=== PATIENT | female | born 1970 | race African-American/Black ===

== ENCOUNTER 2017-01-15 06:23 | Inpatient (IN) ==
[2017-01-10 16:03] LABS: MANUAL DIFF NEEDED? NO
[2017-01-10 16:05] LABS: URINE SOURCE VOIDED
[2017-01-10 16:27] LABS: BASO% 0.2 % (0.0-0.8); EOS# 0.15 X1000 (0.0-0.7); EOS% 1.7 % (0.0-10.0); HEMATOCRIT 36.8 % (37.0-47.0); HEMOGLOBIN 12.5 g/dL (12.0-16.0); IMM GRAN# 0.02 X1000 (0.0-0.04); IMM GRAN% 0.2 % (0.0-0.5); LYMPH# 3.43 X1000 (1.2-3.4); LYMPH% 37.9 % (20.5-51.1); MCH 28.3 PG (27-31); MCV 83.3 FL (81-99); MONO% 8.8 % (1.7-9.3); MPV 10.4 FL (7.4-10.4); NEUT% 51.2 % (42.2-75.2); PLT 370 X1000 (130-400); RBC 4.42 XMIL (4.2-5.4)
[2017-01-10 17:51] LABS: URINE MICRO REVIEW NEEDED? NO
[2017-01-10 17:56] LABS: BILIRUBIN URINE NEGATIVE (NEGATIVE); BLOOD URINE NEGATIVE (NEGATIVE); COLOR YELLOW; GLUCOSE URINE NEGATIVE (NEGATIVE); LEUKOCYTES URINE NEGATIVE (NEGATIVE); NITRITE URINE NEGATIVE (NEGATIVE); PROTEIN URINE TRACE mg/dL (NEGATIVE); SP GRAVITY URINE 1.016; TURBIDITY URINE CLEAR (CLEAR); UR EPITHELIAL CELLS <10 /HPF (<10); URINE BACTERIA NEGATIVE /HPF; URINE RBC <10 /HPF (<10); URINE WBC <10 /HPF (<10); UROBILINOGEN URINE NORMAL (NORMAL)
--- NOTE | 2017-01-11 06:50 | EKG Report ---
Test Performed on : 01/10/2017 3:45:46 PM Test Reason : pat Blood Pressure : / mmHG Vent. Rate : 067 BPM Atrial Rate : 067 BPM P-R Int : 170 ms QRS Dur : 090 ms QT Int : 400 ms P-R-T Axes : 051 -14 002 degrees QTc Int : 422 ms Normal sinus rhythm. Moderate voltage criteria for LVH, may be normal variant Borderline ECG No previous ECGs available Confirmed by Veronika Severino MD ([id number]) on 01/11/2017 1:02:02 PM
--- NOTE | 2017-01-14 18:08 | HISTORY AND PHYSICAL ---
HISTORY OF PRESENT ILLNESS: Stefanie is a 46-year-old, black female, para 3, with a history of a C- section, and also 2 vaginal deliveries, being admitted at this time for a total abdominal hysterectomy. She has a past history of having had an endometrial ablation back in 2014, but continues to have ongoing abnormal bleeding problems and a significant amount of dysmenorrhea. She relates that all of this seems to interfere with her activities of daily living during that time of the month, and that not only in looking after her own children, she has a grandchild that requires a lot of her time, and this markedly compromises her ability to be able to handle that situation. She feels that she does want to move on in the direction of a hysterectomy, and with her exam and the history of a , we discussed proceeding with a total abdominal hysterectomy. She does understand that there are other options, robotics and laparoscopic, and that she was certainly welcome to investigate those if she liked, but she felt more comfortable staying and having us proceed as planned. We did discuss the management of her ovaries, and she would like to leave them intact, assuming that they do appear to be normal. She does understand that in the future, there is no way to predict whether that may become an issue or not. We also discussed the nature of the procedure, the risk involved, the risk of anesthesia issues, including, but not limited to, injury to surrounding structures, infection, hemorrhage, and even . We talked about the usual length of hospitalization, the recuperation time at home, and the restrictions therein. We also discussed the fact that due to her size and previous , that we will not know for sure about the status of her cervix until we are intraoperative, and that if it is extremely risky to try to remove the cervix, that we will leave it intact, doing a supracervical hysterectomy, which hopefully will take care of the majority of any kind of bleeding or cramping or pain. She understands that is sometimes left behind, being the cervix, it if it appears to be more of a risk to remove it. It should be noted in regards to that, her last Pap smear done 12/27/2016 was normal. It should also be noted that she is going to have a bilateral breast reduction, and that will be done by Dr. Mendoza upon the completion of our portion of the procedure. Otherwise, she felt well-informed in regards to the proposed procedure, and had no further questions. PAST MEDICAL HISTORY: Other than the above, is for the most part noncontributory. She has had some iron-deficiency anemia problems, and normally sees Dr. Josep Romeo for her regular medical care, but has also seen Dr. Daniel for the followup regarding her iron deficiency. It should be noted at this point, prior to surgery, that her hematocrit is 36.8. FAMILY HISTORY: Noncontributory. SOCIAL HISTORY: Noncontributory. REVIEW OF SYSTEMS: Other than the above, are noncontributory. ALLERGIES: She relates to no known allergies. PHYSICAL EXAMINATION: GENERAL: A well-developed, moderately obese black female, in no acute distress. VITAL SIGNS: Stable. Noted on the chart. HEENT: Unremarkable. NECK: Without nodes or thyromegaly. HEART: Regular, without murmurs, gallops, or rubs. LUNGS: Clear. BREASTS: Without mass or tenderness. ABDOMEN: Soft, nontender. No masses. PELVIC: Normal external female genitalia. Vagina is clean. Cervix: No lesions. Uterus: Normal size, mid position. No adnexal masses. Rectovaginal exam is normal. Heme negative. EXTREMITIES: Without tenderness or edema. NEUROLOGICAL: Grossly normal. ASSESSMENT: Abnormal uterine bleeding and mostly dysmenorrhea refractory to prior conservative surgery. PLAN: Total abdominal hysterectomy. cc: Ronak Flores MD
[~2017-01-15 06:23] MED LIST: DIPRIVAN 1% ONE; XYLOCAINE-MPF 2% ONE; ZEMURON ONE
[2017-01-15] MEDS ORDERED: ZEMURON ONE (06:24)
[2017-01-15] MEDS ORDERED: KEFZOL 2 GM/D5W 2 GM/50 ML IVPB ONE (06:41)
[2017-01-15] MEDS ORDERED: TRANSDERM-SCOP ONE (06:41)
[2017-01-15] MEDS ORDERED: LR 1,000 ML ONE ×2 (06:41→14:56)
[2017-01-15] MEDS ORDERED: METHYLENE BLUE 0.5% ONE (06:55)
[2017-01-15] MEDS ORDERED: MURI-LUBE MINERAL OIL ONE (06:55)
[2017-01-15] MEDS ORDERED: BACITRACIN ONE (06:55)
[2017-01-15] MEDS ORDERED: MARCAINE 0.25% PF ONE (07:24)
[2017-01-15] MEDS ORDERED: EXPAREL 1.3% ONE (07:24)
[2017-01-15] MEDS ORDERED: SODIUM CHLORIDE 0.9% 10 ML ONE ×2 (07:24→09:56)
[2017-01-15] MEDS ORDERED: FENTANYL ONE (08:03)
[2017-01-15 08:15] LABS: URINE MICRO REVIEW NEEDED? NO; URINE SOURCE CATH
[2017-01-15 08:21] LABS: BILIRUBIN URINE NEGATIVE (NEGATIVE); BLOOD URINE NEGATIVE (NEGATIVE); COLOR STRAW; GLUCOSE URINE NEGATIVE (NEGATIVE); LEUKOCYTES URINE NEGATIVE (NEGATIVE); NITRITE URINE NEGATIVE (NEGATIVE); PH URINE 6.5; PROTEIN URINE NEGATIVE (NEGATIVE); TURBIDITY URINE CLEAR (CLEAR); UR EPITHELIAL CELLS <10 /HPF (<10); URINE BACTERIA NEGATIVE /HPF; URINE RBC <10 /HPF (<10); URINE WBC <10 /HPF (<10); UROBILINOGEN URINE NORMAL (NORMAL)
[2017-01-15] MEDS ORDERED: NORCURON ONE (09:49)
[2017-01-15] MEDS ORDERED: ROBINUL ONE (09:49)
[2017-01-15] MEDS ORDERED: KEFZOL 1 GM/D5W 1 GM/50 ML IVPB ONE (10:21)
--- NOTE | 2017-01-15 14:43 | PROGRESS NOTE ---
DATE: 01/15/2017 I came by to visit with Stefanie. She is in holding for recovery room and is stable postop, with good vital signs and normal urine output. She is managing her discomfort well at this point, and will soon be going up to her room on the fourth floor after recovery is completed. I also did speak with her family members again to let them know that she seemed to be doing well and that I will plan to revisit first thing in the morning. They all understand that depending upon how tonight and tomorrow morning goes, that Stefanie may be able to be discharged to home. Typically, that would be Dr. Mendoza's plan anyhow. At that point, we will certainly go over all of her instructions and make arrangements for her to set up postop office visit plans and release her to home if the time is right. So far, she is stable status post subtotal hysterectomy with bilateral salpingectomies and also bilateral breast reduction. cc: Ronak Flores MD
--- NOTE | 2017-01-15 14:52 | OPERATIVE NOTE ---
PROCEDURE DATE: 01/15/2017 SURGEON: Dr. Ronak Flores. CASE CONSULTANT: Dr. Delonte Tellez. ANESTHESIA: General endotracheal, Dr. Emanuel, who also performed a TAP block. PREOPERATIVE DIAGNOSIS: Abnormal uterine bleeding and dysmenorrhea, both refractory to prior conservative surgery in the form of an ablation. PROCEDURES PERFORMED: Subtotal abdominal hysterectomy, supracervical hysterectomy with bilateral salpingectomies. FINDINGS: At the time, grossly normal size uterus, normal tubes and ovaries. There was some scarring around the cervix. OPERATIVE NOTE: Stefanie was brought to the operating room and after being placed upon the operating table and subsequently under general anesthesia, she was then prepped and draped in the usual sterile fashion with a Benjamin catheter in place. We also used some support to hold her abdomen up and away from the lower abdomen to facilitate exposure during the hysterectomy portion of the procedure. The abdomen is entered going through an old Pfannenstiel incision scar and once the peritoneum was opened and extended, the Bre retractor was inserted and 3 moist lap packs were used to displace the bowel superiorly and out of the field of surgery along with the bladder blade down below. We grasped the fundus of the uterus with a King clamp. It appeared normal size. There was a little scarring down where the old section had been performed and the pelvis narrowed down in that area as well. We began by grasping the right tube with a Kahlil clamp and then using the LigaSure to clamp, cauterize, and transect the right fallopian tube away from the mesosalpinx and angling it back up toward the uterus and ultimately removing the fallopian tube. After that, we then used the LigaSure to clamp, cauterize, and transect the utero-ovarian ligament, to extirpate the right ovary away from the fundus of the uterus as it appeared normal, and it was Stefanie's desire to try to preserve the ovaries if they did appear normal. We carried this dissection with the ligature on down through the round ligament on that side and then proceeded back to the left and did the exact same maneuvers by removing the tube and transecting the utero-ovarian ligament and the round ligament. Hemostasis was good throughout all of that. We then used the pickups and Metzenbaum scissors to incise the reflected bladder peritoneum and to mobilize it down the cervix as far as we could safely do so in hopes of not causing any injury to the bladder itself. We then used zeppelin clamps to cross-clamp, transect, and suture ligate the uterine vessels. This was done in a 2-step fashion and then Dillon clamps were used to clamp, transect, and suture ligate in a stepwise manner. The remaining paracervical tissue down to the midpoint of the cervix. At that point, we decided that due to the scarring and the narrow working area and, in view of the fact, that she has had a normal Pap smear that we would stop at that point with a supracervical hysterectomy. We amputated the upper part of the uterus as well as over half of the cervix. We cauterized the endocervical canal and then reapproximated the back side to the front side of the cervix starting from 1 angle to the other and in-between with about 4 or 5 [id number] style stitches. There was a little bit of bleeding point from the right- hand angle which we over sewed with another iosqwk-yf-hbljj style stitch to provide adequate hemostasis and closure there. We then went back and checked all of our pedicles which were found to be dry. We then cut the excess suture material and, again, inspected and confirmed good hemostasis. We removed all of the lap packs as well as the retractor and, once all was out and accounted for, we then closed the peritoneum with a running #2-0 Polysorb. The subfascial plane was controlled hemostatically with the electrocautery and the fascia run back together with 2 separate strands of #1 Polysorb; one from the right hand angle over to the midpoint and secondly from the left-hand angle over to the midpoint. We then irrigated and inspected the subcutaneous plane and then reapproximated the surgical skin edges with the stapler. The incision site was cleaned. It was covered with a sterile dressing. Urine output had been good and was clear and our estimated blood loss up to that point was about 75 mL and, again, all of our counts were correct. At this point, Dr. Emanuel came in to perform the TAP block and then Dr. Mendoza subsequently would be coming to perform the breast reduction as planned. It should be noted as well, I did speak with Stefanie's daughter and mother outside in the waiting area to let them know that the procedure had gone well and what exactly we had done, and they felt well informed up to that point and had no further questions. cc: MD Delonte Pratt MD Gordon M. Telepun, MD
[2017-01-15] MEDS ORDERED: MORPHINE PCA ONE (14:56)
[2017-01-15] MEDS ORDERED: MORPHINE ONE (14:56)
[2017-01-15] MEDS ORDERED: BENADRYL IV PRN (15:10)
[2017-01-15] MEDS ORDERED: NARCAN IV PRN (15:10)
[2017-01-15] MEDS ORDERED: SODIUM CHLORIDE 0.9% INJ PRN (15:10)
[2017-01-15] MEDS ORDERED: BENAZEPRIL PO SCH (15:45)
[2017-01-15] MEDS ORDERED: [UNRECOGNIZED DRUG - OTHER] PO SCH (15:45)
[2017-01-15] MEDS ORDERED: AMLODIPINE BESYLATE PO SCH (15:45)
[2017-01-15] MEDS: MORPHINE PCA IV PRN (15:50)
[2017-01-15] MEDS: LR 1,000 ML IV SCH ×2 (15:51→23:00)
[2017-01-15] MEDS: PERIDEX MT SCH ×2 (18:26→20:27)
[2017-01-15] MEDS: NORVASC PO SCH ×2 (18:27→21:36)
[2017-01-15] MEDS: LOTENSIN PO SCH ×2 (18:27→21:37)
[2017-01-15] MEDS: KEFZOL 1 GM/D5W 1 GM/50 ML IVPB IV SCH (18:35)
[2017-01-16] MEDS: MORPHINE PCA IV PRN (01:46)
[2017-01-16] MEDS: PHENERGAN IV PRN ×3 (01:50→20:46)
[2017-01-16] MEDS: KEFZOL 1 GM/D5W 1 GM/50 ML IVPB IV SCH ×3 (03:06→18:23)
[2017-01-16 05:57] LABS: HEMATOCRIT 31.3 % (37.0-47.0); HEMOGLOBIN 10.3 g/dL (12.0-16.0); MCH 28.5 PG (27-31); MCHC 32.9 g/dL (33-37); MCV 86.5 FL (81-99); MPV 10.4 FL (7.4-10.4); RBC 3.62 XMIL (4.2-5.4)
[2017-01-16] MEDS ORDERED: SALINE LOCK IV FLUID XX ONE (06:31)
[2017-01-16] MEDS: LR 1,000 ML IV SCH (06:55)
--- NOTE | 2017-01-16 09:53 | PROGRESS NOTE ---
DATE: 01/16/2017 Stefanie is now about 24 hours status post subtotal supracervical abdominal hysterectomy with bilateral salpingectomies. She was visited earlier by Dr. Mendoza who had performed a bilateral breast reduction after our procedure yesterday. She seems to have had a good night. She has remained afebrile. Has managed her pain relief adequately with the GOLD WHEEL [employer]ER [employer] POLISHER and the TAP block, and has now been converted over to oral analgesics. The Benjamin catheter was removed earlier this morning but she has not needed to voided as of yet. We will see how things progress along this morning as far as her being able to consume liquids and solids, as well as be up moving around. Up to this point, she has had a little bit of nausea but we are hopeful that will resolve as the GOLD WHEEL BLOCKER AND POLISHER pump has been discontinued. The family reported that Dr. Mendoza was pleased so far with his part of the procedure. It should also be noted that her white count was 10.4 and hematocrit was 31.3. Her urine output has remained clear and has been more than adequate. She is stable postop and will continue as stated above and re-evaluate around lunchtime today to see about the prospects of possibly being discharged to home. cc: Ronak Flores MD
[2017-01-16] MEDS: PERIDEX MT SCH (10:42)
[2017-01-16] MEDS: NORCO-10 PO PRN ×3 (10:43→22:36)
[2017-01-16] MEDS: LOTENSIN PO SCH (10:43)
[2017-01-16] MEDS: NORVASC PO SCH (10:43)
--- NOTE | 2017-01-16 13:12 | PROGRESS NOTE ---
DATE: 01/16/2017 SUBJECTIVE: Stefanie is now more than 24 hours status post subtotal supracervical abdominal hysterectomy with bilateral salpingectomies and also bilateral breast reduction which that part was done by Dr. Mendoza. Stefanie has had some nausea this morning. She thinks it may be because she took her oral pain medication on an empty stomach but, never the less, she has not demonstrated the ability to be able to consume enough liquids and solids to be able to go home. I explained to her that we wanted to be sure that she was eating okay and was not going to go home and have to return to the emergency room secondary to nausea and vomiting. With that. We will plan to keep her until tomorrow and see how the remainder this afternoon and this evening go. I did encourage her family to help her ambulate in the hallways that it would help with her recuperation, and she has been able to void since the catheter has been removed and her vital signs remaining stable, and she is afebrile. The main concern again at this point, is the nausea, and we want to see that resolved before being discharged to home. She is stable status post the aforementioned surgery and will re-evaluate tomorrow morning for the possibility of a likely discharge. cc: Ronak Flores MD
[2017-01-17] MEDS: NORCO-10 PO PRN ×2 (02:06→06:53)
[2017-01-17] MEDS: KEFZOL 1 GM/D5W 1 GM/50 ML IVPB IV SCH (03:17)
[2017-01-17] MEDS: PERIDEX MT SCH (09:02)
[2017-01-17] MEDS: NORVASC PO SCH (09:03)
[2017-01-17] MEDS: LOTENSIN PO SCH (09:03)
--- NOTE | 2017-01-17 09:10 | PROGRESS NOTE ---
DATE: 01/17/2017 SUBJECTIVE: Stefanie is now about 48 hours status post subtotal supracervical hysterectomy with bilateral salpingectomies, also bilateral breast reduction that was done by Dr. Mendoza. She feels much better today. She had a restful night last night, and the nausea seems to be much better, and she feels ready to be discharged to home. Dr. Mendoza has already written her pain medication, anti-nausea medication and also antibiotics that he typically keeps them on after the breast reduction procedure. It should be noted that she did have a low-grade temp of 100 degrees this morning, but vital signs are stable. She does not look sick. The abdomen is soft. The dressing was removed from the Pfannenstiel incision and it appears to be intact and clean. Extremities without tenderness or edema. She has been able to be up walking the hallways, and I encouraged her to do lots of that at home as well as to use her incentive spirometer. She did relate when she does that she is able to cough up some secretions, and I related to her that she needed to continue doing that over the next several days. Plans are made for her to go see Dr. Mendoza tomorrow, and will plan to see her early next week, either Saturday or possibly Saturday, whichever is better for her for staple removal. General instructions in regards to routine activities, sexual activity, incision care have been given, and will plan to see her next week for her first postop check. cc: Ronak Flores MD
--- NOTE | 2017-01-18 08:23 | OPERATIVE NOTE ---
PROCEDURE DATE: 01/15/2017 PROCEDURE: Bilateral reduction mammoplasty. SURGEON: Dr. Maged Mendoza. ICD 10 DIAGNOSIS CODE: N 62, breast hypertrophy. CPT CODE: 1. 78841, reduction mammoplasty. 2. 11432-17, reduction mammoplasty of the other side. INDICATIONS FOR PROCEDURE: This patient is a 46-year-old black female, who has very large, heavy dense breasts. She is an excellent candidate for bilateral reduction mammoplasty, and the plan is to do her reduction after she has a hysterectomy to be performed by Dr. Flores. She was seen in the office for informed consent for this procedure on 01/10/2017. At that point, she understood that she would have reduction mammoplasty, and the goal of this procedure was to reduce the size, shape and the weight of her breasts. She understood that exact pain relief cannot be guaranteed. She understood that exact breast cup sizes cannot be guaranteed. She knows risks including infection, blood loss, blood clots in legs, heart problems, lung problems, allergic reactions, or blood and serum collections in the operative sites that might require drainage. She understands the exact size and shape cannot be guaranteed as with nonoperative breast there can be some asymmetry from side to side. She knows her skin incisions will be around the areola, from the areola to the inframammary fold and within the inframammary fold and that is where the scars will be. She understands that her nipples will be transferred as grafted nipples because her breasts are so big. She knows she will have to heal them as skin grafts and she knows she will lose her sensation. She knows in the future she is to have routine mammography as ordered by her [employer]PER[employer] physician or her family physician. DESCRIPTION OF PROCEDURE: The patient was brought to the operating room after she was marked in outpatient surgery in the sitting position. She went to the operating room and had general anesthesia, and Dr. Flores did the total abdominal hysterectomy first. Then she was re-prepped and draped for the reduction that was done in the standard fashion. The enciso were remarked and the crucial corners were tattooed with methylene blue. The nipples were marked with a 38 mm nipple areola marker and inferior pedicles that were 10 cm wide across the base and 10 cm high were drawn on each breast. The breasts were then resected from medial to lateral. The pedicles were de- epithelialized. She was irrigated with bacitracin solution. The pedicles were tacked to the central chest with 2-0 Polysorb interrupted sutures for central fill volume. Then she was tacked closed over drains with silk sutures. She is put in the sitting position. The size and shape of the breasts found to be good. The inferior incisions were closed with some interrupted 3-0 Polysorb deep dermal sutures at the junction of the flaps followed by running 3-0 Polysorb deep dermal suture followed by running 4-0 Biosyn subcuticular stitch. The drains were secured with drain stitches. She was put back in the sitting position. The left nipple to be placed was marked with a 38 mm nipple areolar marker. This was de-epithelialized. Then the nipples were thinned on the back table and placed on the recipient beds, held in place with eight 4-0 silks left long to make a tie-over bolster, and then a running 5-0 nylon stitch. The bolster was made out of Xeroform gauze and mineral oil-soaked cotton and tied down. The vertical was closed with a final 4-0 Biosyn subcuticular stitch. The drains were secured with 6 drain stitches. The total amount of resection for the right breast was 2208 g ;the total resection for left breast was 2304 g. She tolerated the procedure well and was transported to the recovery room in good condition. cc: MD Ronak Rush MD
== END 2017-01-17 09:23 | disposition home or self-care (01) ==
LOC: SURHOLD 06:23 → 4N 09:43
PROVIDERS: ADMIT Obstetrics & Gynecology; ATTEND Surgery Plastic and Reconstructive Surgery